=== PATIENT | female | born 1990 | race Caucasian/White ===

== ENCOUNTER 2021-02-18 18:04 | Inpatient (IN) | payer OTHER ==
[~2021-02-18 18:04] MED LIST: ACYCLOVIR 400 MG PO; ARTIFICIAL TEA1 EACH OP; BACITRACIN-POL3.5 GM OU; CYCLOBENZAPRINE10 MG PO; IBUPROFEN600 MG PO; PREDNISONE 60 MG PO; TAMIFLU 75 MG C75 MG PO; ZOFRAN4 MG PO
[2021-02-18 18:45] LABS: HEMOGLOBIN 12.9 gm/dl (12.3-15.3); RED BLOOD COUNT 4.7 M/UL (4.00-5.10); WHITE BLOOD COUNT 12.5 K/UL (4.5-11.0)
[2021-02-18 19:08] LABS: BUN/CREATININE RATIO 9 (0-10)
[2021-02-19] MEDS ORDERED: PERCOCET 10-321 EACH PO (12:10)
[2021-02-19] MEDS ORDERED: HEMOCYTE324 MG PO (12:10)
[2021-02-19] MEDS ORDERED: COLACE100 MG PO (12:10)
[2021-02-19] MEDS ORDERED: IBUPROFEN800 MG PO (12:10)
[2021-02-20 06:14] LABS: HEMOGLOBIN 9.4 gm/dl (12.3-15.3)
== END 2021-02-20 17:36 | disposition home or self-care (01) | DRG 787 ==
LOC: GENOP 18:04 → OB 18:37
PROVIDERS: Obstetrics & Gynecology; ADMIT Obstetrics & Gynecology
PROC: 4A1HXCZ Monitoring of Products of Conception, Cardiac Rate, External Approach (ICD-10-PCS; 2021-02-18)
PROC: 0U7C7ZZ Dilation of Cervix, Via Natural or Artificial Opening (ICD-10-PCS; 2021-02-19)
PROC: 10D00Z1 Extraction of Products of Conception, Low, Open Approach (ICD-10-PCS; principal; 2021-02-19 11:25)
DX: O32.1XX0 Maternal care for breech presentation, not applicable or unspecified (principal); D62 Acute posthemorrhagic anemia; Z20.822 Contact with and (suspected) exposure to COVID-19; O13.4 Gestational [pregnancy-induced] hypertension without significant proteinuria, complicating childbirth; Z3A.38 38 weeks gestation of pregnancy; Z37.0 Single live birth; O99.344 Other mental disorders complicating childbirth; O99.214 Obesity complicating childbirth; F41.9 Anxiety disorder, unspecified; E66.9 Obesity, unspecified; O99.824 Streptococcus B carrier state complicating childbirth; O90.81 Anemia of the puerperium
CPT/HCPCS: 36415; 80053; 81001; 82570; 84156; 84550; 85014; 85018; 85025; 96372; C9113; J0690; J1200; J1885; J2274; J2590; J2795; J7120; U0002

== ENCOUNTER 2021-02-23 13:05 | Emergency (ER) | payer OTHER ==
[~2021-02-23 13:05] MED LIST changes: +COLACE100 MG PO; +HEMOCYTE324 MG PO; +IBUPROFEN800 MG PO; +PERCOCET 10-321 EACH PO
[2021-02-23 14:04] LABS: HEMOGLOBIN 10.4 gm/dl (12.3-15.3); RED BLOOD COUNT 3.84 M/UL (4.00-5.10); WHITE BLOOD COUNT 9.8 K/UL (4.5-11.0)
[2021-02-23 14:45] LABS: BUN/CREATININE RATIO 10 (0-10)
[2021-02-23] MEDS ORDERED: KENALOG OINT 0.15 GM TOP (17:03)
[2021-02-23] MEDS ORDERED: VALACYCLOVIR500 MG PO (17:03)
== END 2021-02-23 17:46 | disposition home or self-care (01) ==
LOC: ER1 13:05
PROVIDERS: Family Medicine
DX: O90.89 Other complications of the puerperium, not elsewhere classified (principal); R07.89 Other chest pain; R21 Rash and other nonspecific skin eruption; Z79.899 Other long term (current) drug therapy
CPT/HCPCS: 71045; 80048; 82550; 82553; 83874; 84484; 85025; 85379; 93005; 99285; Q9967